=== PATIENT | male | born 1975 | race Caucasian/White ===

== ENCOUNTER 2023-09-05 07:49 | Outpatient (AMB) | payer OTHER, SELFPAY ==
[2023-09-05 08:17] VITALS: BP 128/72; PULSE 88; RESP 17; O2SAT 99; BMI 38.1
--- NOTE | 2023-09-05 08:17 | MHC.OFFVIS ---
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 Pt states he has been seizure free for over 20 years. 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 His last seizure was 20 years ago . He has had 4-5 episodes since 1997. He has been stable on dilantin . He had breakthrough episodes with generic phenytoin . 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 He remembers his first seizure after a closed head injury . He does not remember the name of the neurologist. He does not want to change dose or medications. He denies any sleep issues other than snoring. [facility] Medical History Alkaline phosphatase elevation Gingival hyperplasia Hyperlipidemia Erectile dysfunction Obesity Seizure disorder Family History Mother Diabetes Household Members: None Housing: Apartment Alcohol intake: never Patient Tobacco Use Status: Former Tobacco user Years Smoked: 10 years smoke free Review of Systems Const Reports no additional complaints Neuro Reports seizure-like activity Physical Exam Vital Signs: Last Vital Signs Pulse 88 09/05/23 08:17 Resp 17 09/05/23 08:17 BP 128/72 09/05/23 08:17 Pulse Ox 99 09/05/23 08:17 Oxygen Delivery Method Room Air 09/05/23 08:17 BMI result Body Mass Index 38.1 Const General: cooperative, healthy appearing and comfortable Nutritional Appearance: overweight Orientation/consciousness: patient oriented x3 Eyes Pupils: Equal, round and reactive pupils present Neuro General: patient oriented x3, gait normal, tone normal, moves all extremities and no focal motor deficits Cranial nerves: Yes Facial sensation intact/muscles of mastication intact, Yes Equal, round and reactive pupils present, Yes Bilaterally intact EOM present, Yes Nystagmus not present, Yes Normal facial strength present, Yes Midline tongue present and Yes Symmetric palate elevation present Cognition (Neuro): normal cognition Gait exam (Neuro): Normal gait present Motor exam (neuro): 5/5 motor strength present throughout and Normal motor muscle tone present throughout Deep tendon reflexes (DTR's): Right triceps reflex intensity grade: 1+, Left triceps reflex intensity grade: 1+, Rt Biceps (C5, C6): 1+, Left biceps reflex intensity grade: 1+, Right brachioradialis reflex intensity grade: 1+, Left brachioradialis reflex intensity grade: 1+, Right patellar reflex intensity grade: 1+ and Left patellar reflex intensity grade: 1+ Coordination: [id number] test normal Assessment & Plan Assessment & Plan (1) Seizure disorder: Comment: GTC well controlled Code(s): G40.909 - Epilepsy, unspecified, not intractable, without status epilepticus Plan Continue dilantin ( brand name only) XR 100mg - 400mg and 300mg on alternating days MRI brain EEG Labs - CBC cMP Dilantin level Seizure precautions discussed Orders: Orders MR head/brain wo con Today G40.909 - Epilepsy, unspecified, not intractable, without status epilepticus Comprehensive Met. Panel Today G40.909 - Epilepsy, unspecified, not intractable, without status epilepticus Complete Blood Count Auto Diff Today G40.909 - Epilepsy, unspecified, not intractable, without status epilepticus Phenytoin Dilantin Today G40.909 - Epilepsy, unspecified, not intractable, without status epilepticus EEG electroencephalogram Today G40.909 - Epilepsy, unspecified, not intractable, without status epilepticus Medications: New Dilantin Extended (phenytoin sodium extended) orally daily; 4 caps qod aletrnating with 3caps qod 360 caps 6RF NS Coding Level of Care Code New Pt Level 4 (63933) Diagnoses Seizure disorder G40.909
== END 2023-09-05 08:50 | disposition home or self-care (01) ==
PROVIDERS: PCP Internal Medicine; Visit Provider Psychiatry & Neurology Neurology
DX: G40.909 Epilepsy, unspecified, not intractable, without status epilepticus (principal)
CPT/HCPCS: 99204

== ENCOUNTER → 2023-09-05 07:49 | Outpatient (BNVA) | payer OTHER, SELFPAY | PROVIDERS: PCP Internal Medicine; Visit Provider Psychiatry & Neurology Neurology ==

== ENCOUNTER 2023-12-07 08:00 | Outpatient (REF) | payer OTHER, SELFPAY ==
--- NOTE | 2023-12-07 08:03 | EEG_ITS ---
This is a 16-channel EEG with an EKG lead. The patient is reported awake during the tracing. Background EEG rhythm is 12 to 14 hertz 5 to 20 microvolt posteriorly and lower amplitude fast anteriorly. Photic stimulation does not produce any significant abnormality. Hyperventilation is unremarkable. No sharp wave spikes or paroxysmal tendency noted. Cardiac lead does not reveal any significant abnormality. IMPRESSION: No significant abnormality noted on this electroencephalogram. MD JAMILAH Manzano/CU[facility] / [id number]
== END 2023-12-07 08:01 | disposition home or self-care (01) ==
LOC: HO.NEURO 08:00
PROVIDERS: PCP Internal Medicine; Visit Provider Psychiatry & Neurology Neurology
DX: G40.909 Epilepsy, unspecified, not intractable, without status epilepticus (principal)
CPT/HCPCS: 95816